=== PATIENT | male | born 1970 | race Caucasian/White ===

== ENCOUNTER 2016-09-21 14:48 | Inpatient (IN) | payer MEDICAID ==
[~2016-09-21] VITALS: Ht 172.7 cm; Wt 99.8 kg
[~2016-09-21 14:48] MED LIST: ALBMDI INH; ALBU2.5V7 INH; ALBUTEROL; ALPR2TAB2 PO; AMOX-426 PO; FAMO20TA8 PO; FLUT1DIS3 INH; HYDR-4100 PO; LEVO500T20 PO; METH4TAB3 PO; PHEL5 PO; PRED10TA PO; PRED20TA PO; SACC250C3 PO; SULF1TAB48 PO
[2016-09-21 14:55] VITALS: BP 144/94; PULSE 109; RESP 26; TEMP 97; O2SAT 94
--- NOTE | 2016-09-21 14:55 | NUR ---
Triaged at bedside. C/O SOB cough x 2 days. States that he has COPD flares once a month and he is not able to control with home medications at this time. Placed in room 6 . Placed on roofer gypsum, blood pressure machine and pulse oximeter. To gown for exam. Side rails up. Report given to Shama FOWLER.
--- NOTE | 2016-09-21 15:00 | NUR ---
ER Dr. Zafar at bedside examining patient.
--- NOTE | 2016-09-21 15:00 | NUR ---
Pt brought by self, A&Ox4, pt c/o cough and SOB for one month accompanied by intermittent chest pain, skin pink and warm, cap refill <3, VSS, ambulatory, no chets retractions noted at this time
[2016-09-21] MEDS ORDERED: methylPREDNISolone SOD SUCC/PF 62.5 MG/ML VIAL IVP ONE (15:15)
[2016-09-21] MEDS ORDERED: cefTRIAXone 1 GM IVPB PREMIX 50 ML IV ONE (15:15)
[2016-09-21] MEDS ORDERED: IPRATROPIUM BROM 0.5 MG/2.5 ML VIAL.NEB (ATROVENT) IH ONE (15:15)
[2016-09-21] MEDS ORDERED: AZITHROMYCIN 500 MG in NS 250 ML IV ONE (15:15)
[2016-09-21] MEDS ORDERED: ALBUTEROL SULFATE 0.083% 2.5 MG/3 ML VIAL.NEB IH ONE (15:15)
[2016-09-21] MEDS ORDERED: ASPIRIN 81 MG TAB.CHEW PO ONE (15:15)
[2016-09-21 15:25] LABS: BASOPHILS # (AUTO) 0.1 K/uL (0.0-0.2); BASOPHILS % (AUTO) 1.3 % (0.0-2.0); EOSINOPHILS # (AUTO) 0.3 K/uL (0.0-0.4); EOSINOPHILS % (AUTO) 3.7 % (0.0-4.0); HEMATOCRIT 49.6 % (36-54); LYMPHOCYTES % (AUTO) 27.3 % (20.5-51.5); MEAN CORPUSCULAR HEMOGLOBIN 28 pg (27-31); MEAN CORPUSCULAR HGB CONC 32 % (32-36); MEAN CORPUSCULAR VOLUME 85 fL (79.0-98.0); MONOCYTES # (AUTO) 0.8 K/uL (0.0-1.0); MONOCYTES % (AUTO) 10.7 % (1.7-9.3); NEUTROPHILS # (AUTO) 4.2 K/uL (1.8-7.7); PLATELET COUNT (AUTO) 174 K/uL (130-430); RED BLOOD CELL COUNT(AUTO) 5.83 MIL/uL (4.2-6.2); RED CELL DISTRIBUTION WIDTH 13.3 % (9.0-15.0); WHITE BLOOD COUNT (AUTO) 7.4 K/uL (4.8-10.8)
[2016-09-21 15:39] LABS: INR 0.9 (0.80-1.20); PROTHROMBIN TIME 10.1 SECS (9.5-12.5)
[2016-09-21 15:42] LABS: CALCIUM 9.3 mg/dL (8.4-11.0); CREATININE 0.89 mg/dL (0.55-1.30); POTASSIUM 3.6 mmol/L (3.5-5.1)
[2016-09-21 15:44] LABS: TOTAL BILIRUBIN 0.3 mg/dL (0.0-1.0); TOTAL PROTEIN, SERUM 7.5 g/dL (6.4-8.3)
[2016-09-21] MEDS ORDERED: AZITHROMYCIN 500 MG/VIAL (ZITHROMAX) IV ONE (16:20)
--- NOTE | 2016-09-21 16:26 | NUR ---
Telemetry strip printed, interpreted as SINUS RHYTHM at 87 bpm, and placed on the chart.
--- NOTE | 2016-09-21 16:48 | NUR ---
Medication reconciliation completed with information provided by patient . Any prior medication reconciliation on file was reviewed and corrected.
--- NOTE | 2016-09-21 16:49 | NUR ---
Pt off the unit for CT
--- NOTE | 2016-09-21 17:40 | NUR ---
Patient resting quietly. No acute distress noted. Vital signs within normal range. Patient will be admitted to care of Dr. Kwong. Admitted to tele unit. Will go to room 135. Belongings list completed. Summary report printed. Report given to RN at bedside. Transfer to tele via ACLS protocol. Licensed nurse present. IV present no signs or symptoms of infiltration.
--- NOTE | 2016-09-21 17:48 | NUR ---
Admission Note Received patient from ER with diagnosis of chest pain, copd exacerbation. Initial Plan of Care discussed-patient verbalized understanding. Oriented to room, call light, pain management and safety.
--- NOTE | 2016-09-21 17:54 | NUR ---
Patient will be admitted to care of Dr Kwong. Admitted to Tele unit. Will go to room 135 . Belongings list completed. Summary report printed. Report given to Marjorie Rosas .
[2016-09-21 17:58] VITALS: BP 118/72; PULSE 98; RESP 17; TEMP 97.2; O2SAT 93
[2016-09-21] MEDS ORDERED: HYDROcodone/ACETAMIN 10-325 MG TAB PO PRN (19:00)
[2016-09-21] MEDS ORDERED: NITROGLYCERIN 0.4 MG TAB.SUBL SL PRN (19:00)
[2016-09-21] MEDS ORDERED: ACETAMINOPHEN 325 MG TABLET PO PRN (19:00)
[2016-09-21 19:40] VITALS: BP 116/76; PULSE 102; RESP 20; TEMP 98.9; O2SAT 93
--- NOTE | 2016-09-21 20:00 | NUR ---
NOTES; PT IS SITTING UP IN BED, A/A/O X4, NO ACUTE DISTRESS OR SOB NOTED. IV SALINE LOCK TO THE RT AC PATENT. NO SIGNS OF INFECTION NOTED ON IV SITE. PT DENIES ANY PAIN AT THIS TIME. EDUCATED PT ON USE OF CALL LIGHT TO CALL FOR ANY NEED TO ASSIST. PT VERBALIZED UNDERSTANDING. BED LOCKED AND IN LOW POSITION, SIDE RAILS UP X2 PER PT REQUEST. CALL LIGHT AND BEDSIDE TABLE WITHIN REACH. WILL CONTINUE TO MONITOR.
[2016-09-21] MEDS: FAMOTIDINE 20 MG TABLET PO SCH (20:41)
--- NOTE | 2016-09-21 20:43 | NUR ---
NOTES; SCHEDULED PO MEDICATION ADMINISTERED. PT TOLERATED MEDS WELL.
[2016-09-21 21:00] VITALS: BP 116/76; PULSE 102
[2016-09-21] MEDS: methylPREDNISolone SOD SUCC 40 MG/ML VIAL IVP SCH (22:03)
--- NOTE | 2016-09-21 22:08 | NUR ---
PAGED PAGED LITTLE FREEMAN AT [phone] SPOKE WITH MURTAZA.
--- NOTE | 2016-09-21 22:10 | NUR ---
NOTES; PT C/O INSOMNIA. DR. TAYLOR CALLED, SPOKE WITH MD AND INFORMED ABOUT PT C/O INSOMNIA. DR. TAYLOR STATED" OK I WILL ORDER FROM HOME".
[2016-09-21] MEDS: ZOLPIDEM TARTRATE 5 MG TABLET PO PRN (22:34)
--- NOTE | 2016-09-21 22:36 | NUR ---
NOTES; AMBIEN 10MG PO ADMINISTERED FOR INSOMNIA.
--- NOTE | 2016-09-21 23:00 | NUR ---
NOTES; PT CALLED FOR SANDWICH, PROVIDED PER PT REQUEST. PT ATE 100%. WILL CONTINUE TO MONITOR.
[2016-09-22] MEDS: IPRATROPIUM/ALBUTEROL SULFATE 3 ML AMPUL.NEB INH SCH ×4 (01:00→23:36)
--- NOTE | 2016-09-22 01:00 | NUR ---
NOTES; PTT APPEARED TO BE SLEEPING, EYES CLOSED. RESPIRATION EVEN AND UNLABORED. SAFETY MEASURES MAINTAINED.
[2016-09-22 01:17] VITALS: BP 106/72; PULSE 112; RESP 17; TEMP 97.7; O2SAT 90
--- NOTE | 2016-09-22 03:00 | NUR ---
NOTES; PTT APPEARED TO BE SLEEPING, EYES CLOSED. RESPIRATION EVEN AND UNLABORED. SAFETY MEASURES MAINTAINED.
[2016-09-22 04:00] VITALS: BP 110/74; PULSE 110; RESP 17; TEMP 97.9; O2SAT 94
--- NOTE | 2016-09-22 05:09 | NUR ---
NOTES; PT APPEARED TO BE SLEEPING, EYES CLOSED. RESPIRATION EVEN AND UNLABORED. SAFETY MEASURES MAINTAINED.
--- NOTE | 2016-09-22 05:21 | NUR ---
CONSULTATION PAGED REASON FOR CONSULTATION:CHEST PAIN R/O IN, COPD EXACERBATION WAS CONSULT CALLED?Y PERSON WHO WAS NOTIFIED:YASMIN CONSULTING PHYSICIAN:ORLANDO PEACOCK PERLITE GRINDER SPECIALTY:CARDIO PERLITE GRINDER PHONE NUMBER:[phone]
--- NOTE | 2016-09-22 06:44 | NUR ---
NOTES; NO SIGNIFICANT CHANGES THROUGH THE NIGHT. RESTING QUIETLY, EASILY AROUSED. DENIES ANY PAIN AT THIS TIME. ALL NEEDS ATTENDED. SAFETY MEASURES MAINTAINED.
[2016-09-22 06:58] LABS: LYMPHOCYTES # (AUTO) 0.7 K/uL (1.0-5.5)
[2016-09-22 07:22] LABS: BASOPHILS % (AUTO) 0.3 % (0.0-2.0); EOSINOPHILS % (AUTO) 0.1 % (0.0-4.0); HEMATOCRIT 44.5 % (36-54); LYMPHOCYTES % (AUTO) 4.9 % (20.5-51.5); MEAN CORPUSCULAR HEMOGLOBIN 28 pg (27-31); MEAN CORPUSCULAR HGB CONC 34 % (32-36); MEAN CORPUSCULAR VOLUME 84 fL (79.0-98.0); MONOCYTES # (AUTO) 0.2 K/uL (0.0-1.0); MONOCYTES % (AUTO) 1.3 % (1.7-9.3); NEUTROPHILS # (AUTO) 14.3 K/uL (1.8-7.7); NEUTROPHILS % (AUTO) 93.4 % (40.0-70.0); PLATELET COUNT (AUTO) 154 K/uL (130-430); RED BLOOD CELL COUNT(AUTO) 5.32 MIL/uL (4.2-6.2); WHITE BLOOD COUNT (AUTO) 15.2 K/uL (4.8-10.8)
[2016-09-22 07:54] LABS: POTASSIUM 4.2 mmol/L (3.5-5.1); SODIUM SERUM 141 mmol/L (136-145)
[2016-09-22 07:55] LABS: ANION GAP 7 (5-15); CALCIUM 9.2 mg/dL (8.4-11.0); CHLORIDE 106 mmol/L (98-107); CHOLESTEROL 146 mg/dL (<200); CREATININE 0.96 mg/dL (0.55-1.30); GFR AFRICAN AMERICAN 108 mL/min (>90); GLUCOSE 151 mg/dL (70-99); HDL CHOLESTEROL 57 mg/dL (>45); TRIGLYCERIDES 44 mg/dL (30-150); UREA NITROGEN, BLOOD 10 mg/dL (8-21)
[2016-09-22 07:56] LABS: LDL CHOLESTEROL 87 mg/dL (<100); THYROID STIMULATING HORMONE 0.33 uIu/mL (0.34-4.82)
[2016-09-22 08:00] VITALS: BP 124/82; PULSE 98; RESP 20; TEMP 97.7; O2SAT 96
--- NOTE | 2016-09-22 08:00 | NUR ---
AM NOTES: RECEIVED PT AT 0730, ON BED AWAKE, ALERT, ORIENTED, AMBULATORY, NO RESP DISTRESS NOTED, DENIES CHEST PAIN, ON NSR. TO CONTINUE TO MONITOR CLOSELY.
[2016-09-22] MEDS: FAMOTIDINE 20 MG TABLET PO SCH ×2 (08:49→21:00)
[2016-09-22] MEDS: ASPIRIN 81 MG TAB.CHEW PO SCH (08:49)
[2016-09-22] MEDS: methylPREDNISolone SOD SUCC 40 MG/ML VIAL IVP SCH ×2 (08:49→20:20)
--- NOTE | 2016-09-22 10:00 | NUR ---
NURSE: AMBULATING ON THE HALLWAY, NO RESP DISTRESS NOTED, HOT METAL MIXER OPERATOR/RESIN REMOVER CAME TO SEE THE PT.
[2016-09-22 12:34] VITALS: BP 135/85; PULSE 87; RESP 17; TEMP 98; O2SAT 95
--- NOTE | 2016-09-22 15:23 | NUR ---
DISCHARGE PLANNING Spoke with Mack at [facility] who stated does not supply rechargeable nebulizer. LARRY Flores made aware.
[2016-09-22 15:44] LABS: FREE T4 (FREE THYROXINE) 0.9 ng/dl (0.8-1.5)
[2016-09-22 16:59] VITALS: BP 138/82; PULSE 79; RESP 18; TEMP 98.6; O2SAT 95
[2016-09-22 19:30] VITALS: BP 132/79; PULSE 80; RESP 18; TEMP 97.9; O2SAT 96
--- NOTE | 2016-09-22 19:30 | NUR ---
NOTES; PT IS SITTING UP IN BED, WATCHING TV. A/A/O X4, NO ACUTE DISTRESS OR SOB NOTED. IV SALINE LOCK TO THE RT AC PATENT. NO SIGNS OF INFECTION NOTED ON IV SITE. PT DENIES ANY SOB, DISCOMFORT OR PAIN AT THIS TIME. PRODUCTIVE COUGH WITH CLEAR PHLEGM NOTED. EDUCATED PT ON USE OF CALL LIGHT TO CALL FOR ANY NEED TO ASSIST. PT VERBALIZED UNDERSTANDING. BED LOCKED AND IN LOW POSITION, SIDE RAILS UP X2 PER PT REQUEST. CALL LIGHT AND BEDSIDE TABLE WITHIN REACH. WILL CONTINUE TO MONITOR.
[2016-09-22] MEDS ORDERED: cefTRIAXone 1 GM in D5W 50 ML IV SCH (21:00)
[2016-09-22] MEDS: ZOLPIDEM TARTRATE 5 MG TABLET PO PRN (21:04)
--- NOTE | 2016-09-22 21:05 | NUR ---
NOTES; AMBIEN 10MG PO FOR INSOMNIA , AND SCHEDULED PO MEDICATION ADMINISTERED. PT TOLERATED MEDS WELL. WILL CONTINUE TO MONITOR.
--- NOTE | 2016-09-22 23:30 | NUR ---
NOTES; APPEARED TO BE SLEEPING, EYES CLOSED, RESPIRATION EVEN AND UNLABORED. EASILY AROUSED. NO APPARENT DISTRESS NOTED. SAFETY MEASURES IN PROGRESS.
[2016-09-23 00:33] VITALS: BP 123/71; PULSE 76; RESP 18; TEMP 98.4; O2SAT 95
--- NOTE | 2016-09-23 02:00 | NUR ---
NOTES; PT APPEARED TO BE SLEEPING, EYES CLOSED, RESPIRATION EVEN AND UNLABORED. EASILY AROUSED. NO APPARENT DISTRESS NOTED. SAFETY MEASURES IN PROGRESS. WILL CONTINUE TO MONITOR.
--- NOTE | 2016-09-23 04:30 | NUR ---
NOTES; PT APPEARED TO BE SLEEPING, EYES CLOSED, RESPIRATION EVEN AND UNLABORED. EASILY AROUSED. NO APPARENT DISTRESS NOTED. SAFETY MEASURES IN PROGRESS. WILL CONTINUE TO MONITOR.
[2016-09-23 05:34] VITALS: BP 128/74; PULSE 79; RESP 18; TEMP 98.9; O2SAT 94
[2016-09-23] MEDS: IPRATROPIUM/ALBUTEROL SULFATE 3 ML AMPUL.NEB INH SCH ×2 (06:25→07:49)
--- NOTE | 2016-09-23 06:50 | NUR ---
NOTES; RESTING QUIETLY, EASILY AROUSED. NO S/S OF DISTRESS NOTED. DENIES ANY SOB. VITAL SIGNS STABLE. ALL NEEDS MET THROUGHOUT SHIFT. SAFETY MEASURES MAINTAINED. CALL LIGHT WITHIN REACH. WILL ENDORSE CARE TO ONCOMING NURSE.
[2016-09-23 07:33] VITALS: BP 111/80; PULSE 71; RESP 18; TEMP 97.7; O2SAT 96
--- NOTE | 2016-09-23 07:36 | NUR ---
INITIAL NOTES RECEIVED PATIENT ON BED AWAKE WATCHING T.V.BREATHING EVEN AND UNLABORED WITH O2 AT 2L/M VIA NASAL CANNULA.IVF SALINE LOCK INTACT AND PATENT;NO SIGNS AND SYMPTOMS OF INFILTRATION.SAFETY AND FALL PRECAUTIONS IN PLACE.CALL LIGHT WITHIN REACH
[2016-09-23] MEDS: FAMOTIDINE 20 MG TABLET PO SCH (08:46)
[2016-09-23] MEDS: ASPIRIN 81 MG TAB.CHEW PO SCH (08:46)
[2016-09-23] MEDS: methylPREDNISolone SOD SUCC 40 MG/ML VIAL IVP SCH (08:46)
--- NOTE | 2016-09-23 10:00 | NUR ---
NOTES SEEN PATIENT AMBULATING IN THE HALLWAY;TOLERATED ACTIVITY WELL
--- NOTE | 2016-09-23 10:15 | NUR ---
NOTES DR. TAYLOR CAME AND EXAMINED THE PATIENT;WITH ORDER FOR DISCHARGE AND CARRIED OUT
[2016-09-23] MEDS ORDERED: DOXY100T2 PO (11:10)
[2016-09-23] MEDS ORDERED: PRED20TA PO (11:11)
[2016-09-23 11:49] VITALS: BP 112/76; PULSE 70; RESP 18; TEMP 97.1; O2SAT 94
[2016-09-23 12:05] VITALS: BP 119/76; PULSE 74; RESP 18; TEMP 98.5; O2SAT 98
--- NOTE | 2016-09-23 12:40 | NUR ---
D/C Patient Patient given medication reconciliation form and D/C instructions. Exit Care provided. Patient verbalized understanding. MD discussed with patient the results and treatment provided. Ambulatory with steady gait for discharge to home. Patient in stable condition, ID band removed. IV catheter removed, intact and dressing applied, no active bleeding. Rx of doxycycline and prednisolone given. Patient educated on pain management. All belongings sent with patient. Addendum: 09/23/16 at 1325 by Yessica Jimenes RN INFORMATION REGARDING COMMUNITY RESOURCES GIVEN TO PATIENT SAID HE WILL LOOK INTO IT BUT FOR NOW HE WILL JUST STAY IN HIS TRUCK
--- NOTE | 2016-09-26 15:15 | NUR ---
Discharge Follow Up Phone Call MANPOWER DEVELOPMENT SPECIALIST MANAGER phoned patient, . Patient stated he was not improving much. He has a follow up appointment with his PCP on 10/03/16. MANPOWER DEVELOPMENT SPECIALIST MANAGER encouraged him to call and request an earlier appointment if he was not improving in a couple days or if he got worse. Patient agreed. Patient stated he filled his prescriptions and is taking them as directed. No further calls requested.
== END 2016-09-23 12:40 | disposition home or self-care (01) | DRG 140 ==
LOC: SED 14:50 → STU 17:33
PROVIDERS: ADMIT Internal Medicine; ATTEND Internal Medicine
DX: J44.1 Chronic obstructive pulmonary disease with (acute) exacerbation (principal); I48.0 Paroxysmal atrial fibrillation; F32.9 Major depressive disorder, single episode, unspecified; E66.9 Obesity, unspecified; J45.909 Unspecified asthma, uncomplicated; G89.29 Other chronic pain; M54.9 Dorsalgia, unspecified; Z87.891 Personal history of nicotine dependence; Z59.0 Homelessness; Z85.118 Personal history of other malignant neoplasm of bronchus and lung; Z68.33 Body mass index [BMI] 33.0-33.9, adult; Z79.899 Other long term (current) drug therapy
CPT/HCPCS: 36415; 71010; 80048; 80053; 80061; 83605; 83880; 84439; 84443-TC; 84484; 85025; 85610-TC; 85730-TC; 87040-TC; 93005; 94640; 94760; 96365; 96367; 96375; 99285; J0456; J0696; J1030; J2930; J7050; J7060

== ENCOUNTER 2016-12-04 18:27 | Inpatient (IN) | payer MEDICAID ==
[~2016-12-04] VITALS: Ht 172.7 cm; Wt 103.4 kg
[~2016-12-04 18:27] MED LIST changes: +DOXY100T2 PO
[2016-12-04 18:30] VITALS: BP 132/79; PULSE 114; RESP 22; TEMP 97.2; O2SAT 96
[2016-12-04] MEDS ORDERED: ALBUTEROL SULFATE 0.083% 2.5 MG/3 ML VIAL.NEB IH ONE (18:45)
[2016-12-04] MEDS ORDERED: IPRATROPIUM BROM 0.5 MG/2.5 ML VIAL.NEB (ATROVENT) IH ONE ×2 (18:45→21:00)
[2016-12-04 19:00] LABS: BASOPHILS # (AUTO) 0.1 K/uL (0.0-0.2); BASOPHILS % (AUTO) 0.8 % (0.0-2.0); EOSINOPHILS # (AUTO) 0.3 K/uL (0.0-0.4); EOSINOPHILS % (AUTO) 3.8 % (0.0-4.0); HEMATOCRIT 47.4 % (36-54); HEMOGLOBIN 15.3 g/dL (14.0-18.0); LYMPHOCYTES # (AUTO) 2.2 K/uL (1.0-5.5); MEAN CORPUSCULAR HEMOGLOBIN 27 pg (27-31); MEAN CORPUSCULAR HGB CONC 32 % (32-36); MEAN CORPUSCULAR VOLUME 83 fL (79.0-98.0); NEUTROPHILS # (AUTO) 5.6 K/uL (1.8-7.7); NEUTROPHILS % (AUTO) 60.4 % (40.0-70.0); PLATELET COUNT (AUTO) 176 K/uL (130-430); RED BLOOD CELL COUNT(AUTO) 5.71 MIL/uL (4.2-6.2); RED CELL DISTRIBUTION WIDTH 12.6 % (9.0-15.0); WHITE BLOOD COUNT (AUTO) 9.2 K/uL (4.8-10.8)
--- NOTE | 2016-12-04 19:00 | NUR ---
Placed in room 5. Placed on secured entrance monitor and pulse oximeter. To gown for exam. Side rails up.
[2016-12-04 19:10] LABS: CALCIUM 8.6 mg/dL (8.4-11.0); CREATININE 1.15 mg/dL (0.55-1.30); POTASSIUM 3.5 mmol/L (3.5-5.1)
[2016-12-04 19:13] LABS: INR 0.9 (0.80-1.20); PROTHROMBIN TIME 10.1 SECS (9.5-12.5)
[2016-12-04 19:15] LABS: ALBUMIN 3.6 g/dL (3.4-4.8); TOTAL BILIRUBIN 0.3 mg/dL (0.0-1.0); TOTAL PROTEIN, SERUM 6.9 g/dL (6.4-8.3)
--- NOTE | 2016-12-04 19:20 | NUR ---
Patient alert and oriented x 4 came in the ER with a complaint SOB with cough x 4 days. Wheezing noted. Denies fever, n/v/d. O2 sat at 95%. No acute distress noted. Non-productive cough noted.
--- NOTE | 2016-12-04 20:50 | NUR ---
ER Dr. Szymanski at bedside examining patient.
[2016-12-04] MEDS ORDERED: LevALBUTEROL HCL 1.25 MG/0.5 ML *CONC.* VIAL.NEB (XOPENEX CONC.) INH ONE (21:00)
[2016-12-04] MEDS ORDERED: methylPREDNISolone SOD SUCC/PF 62.5 MG/ML VIAL IVP ONE (21:00)
--- NOTE | 2016-12-04 22:05 | NUR ---
RT at bedside performing breathing tx
[2016-12-04] MEDS ORDERED: CYCLOBENZAPRINE HCL 10 MG TABLET (FLEXERIL) PO ONE (22:30)
--- NOTE | 2016-12-04 23:40 | NUR ---
Admission Note Received patient from ER with diagnosis of COPD EXACERBATION. Initial Plan of Care discussed-patient verbalized understanding. Family at bedside. Oriented to room, call light, pain management and safety.
[2016-12-04] MEDS ORDERED: ALBMDI INH (23:41)
[2016-12-04] MEDS ORDERED: BUDE6HFA INH (23:41)
[2016-12-04] MEDS ORDERED: FLUT1DIS3 INH (23:41)
[2016-12-04] MEDS ORDERED: HYDR-4100 PO (23:41)
[2016-12-05] VITALS (7 sets, daily range): BP systolic 108–130; BP diastolic 66–81; PULSE 90–113; RESP 18–21; TEMP 96–97.9; O2SAT 92–98
[2016-12-05] MEDS ORDERED: IPRATROPIUM/ALBUTEROL SULFATE 3 ML AMPUL.NEB INH PRN
[2016-12-05] MEDS ORDERED: methylPREDNISolone SOD SUCC/PF 62.5 MG/ML VIAL IVP ONE
--- NOTE | 2016-12-05 | NUR ---
Patient admitted under the care of Dr. Medina . Admitted to telemetry unit. Will go to room 117A. Summary report printed. Report given at bedside MALCOLM Boone. Patient transferred to room without incident by 1 RN and 1 EMT. No acute distress or SOB noted upon transfer.
[2016-12-05] MEDS ORDERED: FAMOTIDINE 20 MG TABLET PO ONE (00:15)
[2016-12-05] MEDS ORDERED: MONTELUKAST 10 MG TABLET PO ONE (00:15)
[2016-12-05] MEDS ORDERED: MAGNESIUM SULFATE 1 GM/2 ML VIAL IVP ONE (00:15)
[2016-12-05] MEDS ORDERED: DOXYCYCLINE HYCLATE 100 MG CAPSULE PO ONE (00:15)
[2016-12-05] MEDS ORDERED: MAGNESIUM SULFATE 50 ML IV ONE ×2 (01:04→01:15)
[2016-12-05] MEDS ORDERED: cefTRIAXone 1 GM IVPB PREMIX 50 ML IV ONE (01:05)
--- NOTE | 2016-12-05 01:08 | NUR ---
PAGED PAGED MADAN ESQUIVEL AT [phone] SPOKE WITH JAIME.
--- NOTE | 2016-12-05 01:13 | NUR ---
SPOKE TO DR. VALLEJO- CLARIFY MEDICATION ORDER MAG0-RIDER 2GM.
--- NOTE | 2016-12-05 01:14 | NUR ---
INITIAL NOTES: PT IS AWAKE, ALERT, ORIENTED X 4. NO PAIN. SLIGHT SOB AT EXERTION. NO STABLE VITAL SIGN. IV LOCK LEFT AC GAUGE 20- PATENT AND INTACT. ASSESSMENT DONE. POC DISCUSSED TO PATENT.SAFETY TEACHING DONE. PT VERBALIZED UNDERSTANDING. JORGE LIGHT IN REACH. WILL MONITOR.
[2016-12-05] MEDS: cefTRIAXone 1 GM in D5W 50 ML IV SCH (01:23)
[2016-12-05] MEDS: IPRATROPIUM/ALBUTEROL SULFATE 3 ML AMPUL.NEB INH SCH ×4 (02:22→19:40)
--- NOTE | 2016-12-05 04:17 | NUR ---
ROUND NOTES: SLEEPING, NO SOB, NOT DISTRESS. CALL LIGHT IN REACH. WILL MONITOR.
--- NOTE | 2016-12-05 06:16 | NUR ---
ROUND NOTES: SLEEPING, NO SOB, NO DISTRESS. CALL LIGHT IN REACH. WILL MONITOR.
--- NOTE | 2016-12-05 07:00 | NUR ---
CLOSING: PT WAKES UP. NO PAIN. NO SOB, NOT DISTRESS. LOCK INTACT. SAFETY ON. WILL GIVE BEDSIDE REPORT TO AM RN.
--- NOTE | 2016-12-05 08:00 | NUR ---
AM Initial Notes Pt aaox4 with no complaints of pain at this time. Mild shortness of breath but no distress noted. O2 via nasal canula @ 2L in place with O2 sat 93%. waste/materials exchange specialist in place. Educated about fall and safety precautions. Bed alarm armed with 3 side rails up. Encouraged to call for assistance. Call light within reach. Bilateral scd in place.
[2016-12-05] MEDS: BENZOCAINE/MENTHOL 1 EACH LOZENGE MM PRN ×2 (09:11→17:45)
[2016-12-05] MEDS: FAMOTIDINE 20 MG TABLET PO SCH ×2 (09:11→20:44)
[2016-12-05] MEDS: DOXYCYCLINE HYCLATE 100 MG CAPSULE PO SCH ×2 (09:11→20:44)
--- NOTE | 2016-12-05 10:00 | NUR ---
Rounds Pt asleep. No signs of facial grimacing for pain or discomfort. No distress noted. O2 via nasal canula in place. Call light within reach. Will monitor.
--- NOTE | 2016-12-05 11:45 | NUR ---
Dr. Carol BHAKTA inside room assessing patient. Plan of care discussed.
[2016-12-05] MEDS: HYDROcodone/ACETAMIN 10-325 MG TAB PO PRN ×2 (12:27→17:44)
[2016-12-05] MEDS: PROMETHAZINE-DM 6.25 MG-15 MG/5 ML UDC PO PRN ×2 (12:27→17:45)
[2016-12-05] MEDS ORDERED: MULTIVITAMINS TAB 1 TABLET PO ONE (12:30)
[2016-12-05] MEDS ORDERED: CHOLECALCIFEROL (VITAMIN D3) 2,000 UNIT TABLET PO ONE (12:30)
--- NOTE | 2016-12-05 12:42 | NUR ---
Rounds Pt awake eating lunch. Complaints of back pain 6/10 and coughing. No sob or distress noted. O2 via nasal canula @ 2L in place. Medicated with [place] for back pain and Phenergan DM for cough. Educated about fall and safety precautions. Verbalized understanding. Encouraged to call for assistance. Call light within reach. Will monitor. D/C bus monitor per Dr. Medina.
--- NOTE | 2016-12-05 14:19 | NUR ---
Resting Pt asleep. No signs of facial grimacing for pain or discomfort. No distress noted.
--- NOTE | 2016-12-05 14:55 | NUR ---
1400 ,Medications administered. Patient denies any discomfort, gave patient some apple juice. pt is comfortable.
[2016-12-05] MEDS: methylPREDNISolone SOD SUCC/PF 62.5 MG/ML VIAL IVP SCH ×2 (14:57→20:53)
--- NOTE | 2016-12-05 16:30 | NUR ---
Rounds Pt sound asleep. No signs of facial grimacing for pain or discomfort. No distress noted. Will monitor.
[2016-12-05] MEDS: MONTELUKAST 10 MG TABLET PO SCH (17:43)
--- NOTE | 2016-12-05 17:53 | NUR ---
Pain / Cough Pt complaints of back pain and coughing and wants to be medicated. Medicated patient with [place] for pain and Phenergan DM for cough and Cepacol. Reinforced education about fall and safety precautions. Encouraged to call for assistance. Call light within reach. Will monitor.
--- NOTE | 2016-12-05 18:53 | NUR ---
Closing notes Pt sound asleep. No signs of facial grimacing for pain or discomfort. No distress noted. Will endorse care to incoming nurse.
--- NOTE | 2016-12-05 19:45 | NUR ---
INITIAL ASSESSMENT: RECEIVE PT IN BED, AWAKE, ALERT, ORIENTED X 4. BREATHING EVEN AND NON LABORED, ON O2 2LI/NC, O2 SAT 96%, VITAL STABLE, SLIGHT SOB AT EXERTION. PT DENIES ANY PAIN OR DISCOMFORT. CHEST WHEEZING, ABDOMEN SOFT AND NON DISTENDED, ACTIVE BOWEL SOUND THROUGHOUT ABDOMEN, PT HAS IV LOCK LEFT AC GAUGE 20- PATENT AND INTACT. ASSESSMENT DONE AND COMPLETED. PT HAS EDEMA ON BLE +1. POC DISCUSSED TO PATENT. SAFETY TEACHING DONE. PT VERBALIZED UNDERSTANDING. JORGE LIGHT IN REACH. WILL CONTINUE TO MONITOR.
[2016-12-05] MEDS: MULTIVITAMINS TAB 1 TABLET PO SCH (20:44)
--- NOTE | 2016-12-05 21:30 | NUR ---
ADMINISTERED MEDICATION: PT AWAKE, ALERT, ORIENTED X 4. BREATHING EVEN AND NON LABORED, ON O2 2LI/NC, O2 SAT 97%, VITAL STABLE, SLIGHT SOB AT EXERTION. PT DENIES ANY PAIN OR DISCOMFORT. ADMINISTERED ALL ORDER MEDICATION. PT HAS IV LOCK LEFT AC GAUGE 20- PATENT AND INTACT. PT HAS EDEMA ON BLE +1. SAFETY TEACHING DONE. PT VERBALIZED UNDERSTANDING. JORGE LIGHT IN REACH. WILL CONTINUE TO MONITOR.
--- NOTE | 2016-12-05 23:37 | NUR ---
RN ROUND: PT SLEEPING, EASILY AWAKE, ALERT, ORIENTED X 4. BREATHING EVEN AND NON LABORED, ON O2 2LI/NC, O2 SAT 97%, VITAL STABLE, SLIGHT SOB AT EXERTION. PT DENIES ANY PAIN OR DISCOMFORT. PT HAS IV LOCK LEFT AC GAUGE 20- PATENT AND INTACT. PT HAS EDEMA ON BLE +1. SAFETY TEACHING DONE. PT VERBALIZED UNDERSTANDING. SCD ON. JORGE LIGHT IN REACH. WILL CONTINUE TO MONITOR.
[2016-12-06] VITALS: BP 132/77; PULSE 94; RESP 18; TEMP 98.1; O2SAT 97
[2016-12-06] MEDS: cefTRIAXone 1 GM in D5W 50 ML IV SCH (00:17)
[2016-12-06] MEDS: IPRATROPIUM/ALBUTEROL SULFATE 3 ML AMPUL.NEB INH SCH ×7 (00:37→23:22)
--- NOTE | 2016-12-06 03:20 | NUR ---
RN NOTE: PT SLEEPING, EASILY AWAKE. BREATHING EVEN AND NON LABORED, ON O2 2LI/NC, O2 SAT 95%, VITAL STABLE, SLIGHT SOB AT EXERTION. PT DENIES ANY PAIN OR DISCOMFORT. PT HAS IV LOCK LEFT AC GAUGE 20- PATENT AND INTACT. PT HAS EDEMA ON BLE +1. SAFETY MAINTAINED. SCD ON. JORGE LIGHT IN REACH. WILL CONTINUE TO MONITOR.
[2016-12-06 04:00] VITALS: BP 133/71; PULSE 96; RESP 18; TEMP 97.6; O2SAT 96
--- NOTE | 2016-12-06 05:20 | NUR ---
RN ROUND: PT SLEEPING, EASILY AWAKE. BREATHING EVEN AND NON LABORED, ON O2 2LI/NC, O2 SAT 95%, VITAL STABLE, SLIGHT SOB AT EXERTION. PT DENIES ANY PAIN OR DISCOMFORT. PT HAS IV LOCK LEFT AC GAUGE 20- PATENT AND INTACT. PT HAS EDEMA ON BLE +1. SAFETY MAINTAINED. SCD ON. CALL LIGHT IN REACH. WILL CONTINUE TO MONITOR.
--- NOTE | 2016-12-06 06:00 | NUR ---
COUGH/PAIN MEDICATION:: PT AWAKE, ALERT, ORIENTED X 4. BREATHING EVEN AND NON LABORED, ON O2 2LI/NC, O2 SAT 97%, VITAL STABLE, SLIGHT SOB AT EXERTION. COUGHING ALOT, ADMINISTERED PHENARGAN AND NORCO FOR CHEST PAIN 01/20, WILL REASSESS, PT HAS IV LOCK LEFT AC GAUGE 20- PATENT AND INTACT. PT HAS EDEMA ON BLE +1. SAFETY TEACHING DONE. PT VERBALIZED UNDERSTANDING. SCD ON. JORGE LIGHT IN REACH. WILL CONTINUE TO MONITOR.
[2016-12-06] MEDS: methylPREDNISolone SOD SUCC/PF 62.5 MG/ML VIAL IVP SCH ×3 (06:05→21:04)
[2016-12-06] MEDS: HYDROcodone/ACETAMIN 10-325 MG TAB PO PRN ×3 (06:11→21:06)
[2016-12-06] MEDS: PROMETHAZINE-DM 6.25 MG-15 MG/5 ML UDC PO PRN ×2 (06:11→17:43)
--- NOTE | 2016-12-06 07:21 | NUR ---
CLOSING NOTE: PT SLEEPING, EASILY AWAKE. BREATHING EVEN AND NON LABORED, ON O2 2LI/NC, O2 SAT 95%, VITAL STABLE, SLIGHT SOB AT EXERTION. PT DENIES ANY PAIN OR DISCOMFORT. PT HAS IV LOCK LEFT AC GAUGE 20- PATENT AND INTACT. PT HAS EDEMA ON BLE +1. SAFETY MAINTAINED. SCD ON. ALL NEEDS ATTENDED, JORGE LIGHT IN REACH. WILL ENDORSE TO AM NURSE.
--- NOTE | 2016-12-06 07:25 | NUR ---
rn Notes: patient is aaox 4. afebrile. vss stable. has oxygen 2lnc. lungs bilaterally with diminished at the bases. abdomen soft and non distended. has iv access on the left ac #20. saline lock. bed in low position. call lights within reach. safety measures maintained. informed patient to call for assistance.
[2016-12-06 08:40] VITALS: BP 132/78; PULSE 97; RESP 18; TEMP 98.2; O2SAT 90
--- NOTE | 2016-12-06 09:00 | NUR ---
no coughing noted, stable. no pain
[2016-12-06] MEDS: MULTIVITAMINS TAB 1 TABLET PO SCH ×2 (09:39→21:04)
[2016-12-06] MEDS: DOXYCYCLINE HYCLATE 100 MG CAPSULE PO SCH ×2 (09:39→21:04)
[2016-12-06] MEDS: FAMOTIDINE 20 MG TABLET PO SCH ×2 (09:39→21:04)
[2016-12-06] MEDS: CHOLECALCIFEROL (VITAMIN D3) 2,000 UNIT TABLET PO SCH (09:39)
--- NOTE | 2016-12-06 09:41 | NUR ---
due medication given at this time. trying to sleep. verbalized tired last nite. lno coughing noted. made comfortable.
[2016-12-06 12:00] VITALS: BP 118/72; PULSE 72; RESP 18; TEMP 98; O2SAT 82
--- NOTE | 2016-12-06 12:00 | NUR ---
eating lunch tolerating well. watching tv. no sob noted.
[2016-12-06] MEDS ORDERED: guaiFENesin ER 600 MG TAB PO ONE (13:00)
--- NOTE | 2016-12-06 14:00 | NUR ---
asleep at this time. no sob noted. nor distress noted.
--- NOTE | 2016-12-06 16:12 | NUR ---
DUE MEDICATION GIVEN AT THIS TIME.
[2016-12-06] MEDS: MONTELUKAST 10 MG TABLET PO SCH (17:42)
--- NOTE | 2016-12-06 18:00 | NUR ---
singular po given at this time.
--- NOTE | 2016-12-06 19:00 | NUR ---
called respiratory therapist for breathing treatment. walking in the hallway.
--- NOTE | 2016-12-06 19:30 | NUR ---
sbar endorsed to incoming nurse Aislinn FOWLER
--- NOTE | 2016-12-06 19:45 | NUR ---
INITIAL ASSESSMENT: RECEIVE PT IN BED, AWAKE, ALERT, ORIENTED X 4. BREATHING EVEN AND NON LABORED, ON ROOM AIR, O2 SAT 95%, VITAL STABLE, SLIGHT SOB AT EXERTION. PT DENIES ANY PAIN OR DISCOMFORT. CHEST WHEEZING, ABDOMEN SOFT AND NON DISTENDED, ACTIVE BOWEL SOUND THROUGHOUT ABDOMEN, PT HAS IV LOCK LEFT AC GAUGE 20- PATENT AND INTACT. ASSESSMENT DONE AND COMPLETED. PT HAS EDEMA ON BLE +1. POC DISCUSSED TO PATENT. SAFETY TEACHING DONE. PT VERBALIZED UNDERSTANDING. JORGE LIGHT IN REACH. WILL CONTINUE TO MONITOR.
[2016-12-06 20:00] VITALS: BP 149/90; PULSE 74; RESP 18; TEMP 98; O2SAT 95
[2016-12-06] MEDS: guaiFENesin ER 600 MG TAB PO SCH (21:04)
--- NOTE | 2016-12-06 21:20 | NUR ---
ADMINISTERED MEDICATION: PT AWAKE, ALERT, ORIENTED X 4. BREATHING EVEN AND NON LABORED, ROOM AIR, O2 SAT 93%, VITAL STABLE, SLIGHT SOB AT EXERTION. PT C/O PAIN CHEST 5/10, ADMINISTERED ALL ORDER MEDICATION. NORCO FOR PAIN, WILL REASSESS. PT HAS IV LOCK LEFT AC GAUGE 20- PATENT AND INTACT. PT HAS EDEMA ON BLE +1. SAFETY TEACHING DONE. PT VERBALIZED UNDERSTANDING. JORGE LIGHT IN REACH. WILL CONTINUE TO MONITOR.
--- NOTE | 2016-12-06 23:23 | NUR ---
RN ROUND: PT SLEEPING, EASILY AWAKE. BREATHING EVEN AND NON LABORED, ON O2 2LI/NC, O2 SAT 92%, VITAL STABLE, SLIGHT SOB AT EXERTION. PT DENIES ANY PAIN OR DISCOMFORT. PT HAS IV LOCK LEFT AC GAUGE 20- PATENT AND INTACT. PT HAS EDEMA ON BLE +1. SAFETY MAINTAINED. SCD ON. CALL LIGHT IN REACH. WILL CONTINUE TO MONITOR.
[2016-12-07 00:06] VITALS: BP 135/82; PULSE 87; RESP 20; TEMP 98.8; O2SAT 94
[2016-12-07] MEDS: cefTRIAXone 1 GM in D5W 50 ML IV SCH (00:21)
[2016-12-07] MEDS: IPRATROPIUM/ALBUTEROL SULFATE 3 ML AMPUL.NEB INH SCH ×5 (03:00→23:00)
--- NOTE | 2016-12-07 03:45 | NUR ---
NOTE: PT SLEEPING, EASILY AWAKE. BREATHING EVEN AND NON LABORED, ON O2 2LI/NC, O2 SAT 96%, VITAL STABLE, SLIGHT SOB AT EXERTION. PT DENIES ANY PAIN OR DISCOMFORT. PT HAS IV LOCK LEFT AC GAUGE 20- PATENT AND INTACT. PT HAS EDEMA ON BLE +1. SAFETY MAINTAINED. SCD ON. CALL LIGHT IN REACH. WILL CONTINUE TO MONITOR.
[2016-12-07 04:09] VITALS: BP 132/90; PULSE 76; RESP 18; TEMP 98.8; O2SAT 97
[2016-12-07] MEDS: methylPREDNISolone SOD SUCC/PF 62.5 MG/ML VIAL IVP SCH ×3 (05:57→21:04)
[2016-12-07] MEDS: PROMETHAZINE-DM 6.25 MG-15 MG/5 ML UDC PO PRN (05:57)
[2016-12-07] MEDS: HYDROcodone/ACETAMIN 10-325 MG TAB PO PRN ×3 (06:03→21:04)
[2016-12-07 06:27] LABS: CALCIUM 8.8 mg/dL (8.4-11.0); CREATININE 0.98 mg/dL (0.55-1.30); POTASSIUM 3.9 mmol/L (3.5-5.1)
[2016-12-07 06:32] LABS: BASOPHILS # (AUTO) 0.1 K/uL (0.0-0.2); BASOPHILS % (AUTO) 0.4 % (0.0-2.0); HEMATOCRIT 46.2 % (36-54); HEMOGLOBIN 14.7 g/dL (14.0-18.0); LYMPHOCYTES # (AUTO) 0.9 K/uL (1.0-5.5); MEAN CORPUSCULAR HEMOGLOBIN 27 pg (27-31); MEAN CORPUSCULAR HGB CONC 32 % (32-36); MEAN CORPUSCULAR VOLUME 85 fL (79.0-98.0); MONOCYTES # (AUTO) 0.5 K/uL (0.0-1.0); MONOCYTES % (AUTO) 2.4 % (1.7-9.3); NEUTROPHILS # (AUTO) 21.1 K/uL (1.8-7.7); NEUTROPHILS % (AUTO) 93.2 % (40.0-70.0); PLATELET COUNT (AUTO) 193 K/uL (130-430); RED BLOOD CELL COUNT(AUTO) 5.45 MIL/uL (4.2-6.2); RED CELL DISTRIBUTION WIDTH 13.5 % (9.0-15.0); WHITE BLOOD COUNT (AUTO) 22.6 K/uL (4.8-10.8)
--- NOTE | 2016-12-07 06:46 | NUR ---
PAIN/MEDICATION: PT AWAKE, WATCHING TV. BREATHING EVEN AND NON LABORED, ON O2 2LI/NC, O2 SAT 93%, VITAL STABLE, SLIGHT SOB AT EXERTION. PT C/O LOWER BACK PAIN, ADMINISTERED NORCO 1() TAB GIVEN, WILL REASSESS PAIN LEVEL. PT HAS IV LOCK LEFT AC GAUGE 20- PATENT AND INTACT. PT HAS EDEMA ON BLE +1. SAFETY MAINTAINED. SCD ON. CALL LIGHT IN REACH. WILL CONTINUE TO MONITOR. Addendum: 12/07/16 at 0649 by Maxwell Carlson RN TIME CORRECTION: 0500 AM.
--- NOTE | 2016-12-07 07:30 | NUR ---
rn notes: patient is aaox 4. afebrile. vss stable. lungs bilaterally with rhonchi. no sob noted. has 2 lnc of oxygen noted. o2 sat is 96%.. abdomen soft and non distended. bed in low position. saline lock lt ac #20. dry/intact. call lights within reach. safety measures maintained. informed patient to call for assistance. no sob nor distress noted.
--- NOTE | 2016-12-07 07:36 | NUR ---
CARE ENDORSE TO ALVAREZ RN, PT STABLE, NO DISTRESS. ALL NEEDS ATTENDED THROUGHOUT SHIFT.
[2016-12-07 07:57] VITALS: BP 132/80; PULSE 84; RESP 16; TEMP 97.4; O2SAT 97
--- NOTE | 2016-12-07 09:00 | NUR ---
family at the bedside. no sob nor distress noted.
--- NOTE | 2016-12-07 10:00 | NUR ---
due medication given as ordered. assists on adls.
[2016-12-07] MEDS: DOXYCYCLINE HYCLATE 100 MG CAPSULE PO SCH ×2 (10:05→20:50)
[2016-12-07] MEDS: guaiFENesin ER 600 MG TAB PO SCH ×2 (10:05→20:50)
[2016-12-07] MEDS: FAMOTIDINE 20 MG TABLET PO SCH ×2 (10:05→21:04)
[2016-12-07] MEDS: CHOLECALCIFEROL (VITAMIN D3) 2,000 UNIT TABLET PO SCH (10:05)
[2016-12-07] MEDS: MULTIVITAMINS TAB 1 TABLET PO SCH ×2 (10:05→20:50)
--- NOTE | 2016-12-07 10:11 | NUR ---
norco po 10/325mg po given. family at the bedside. Dr Medina came and evaluate the patient.
[2016-12-07 12:34] VITALS: BP 140/92; PULSE 100; RESP 20; TEMP 98.9; O2SAT 95
--- NOTE | 2016-12-07 14:00 | NUR ---
asleep at this time.
--- NOTE | 2016-12-07 16:00 | NUR ---
watching tv. no pain nor sob noted
[2016-12-07 16:52] VITALS: BP 134/90; PULSE 100; RESP 18; TEMP 98; O2SAT 94
[2016-12-07] MEDS: MONTELUKAST 10 MG TABLET PO SCH (17:46)
--- NOTE | 2016-12-07 17:48 | NUR ---
singulair po tab given. made comfortable.
--- NOTE | 2016-12-07 18:25 | NUR ---
patient will walk in the lobby with the developmental electronics assembler. stable. no sob noted
--- NOTE | 2016-12-07 19:30 | NUR ---
sbar report given to incoming nurse Immanuel FOWLER
--- NOTE | 2016-12-07 20:25 | NUR ---
Initial note A/O x 3, no SOB, no chest pain, c/o lower back pain 01/20. Skin warm to touch, IV at L AC, patent. Cough with dark yellow sputum noted. Wheezing at L upper chest noted. Actib Addendum: 12/07/16 at 2048 by Immanuel Pappas RN Active bowel sounds. No edema noted. Patient took O2/NC away and stated will put it back. Current O2 sat 92% on RA. Patient took SCD off and stated will put it back later too. Call light within reach, bed at lowest position, will continue to monitor patient.
[2016-12-07 20:43] VITALS: BP 129/80; PULSE 89; RESP 18; TEMP 98.7; O2SAT 92
--- NOTE | 2016-12-07 22:00 | NUR ---
Rounds A/O x 3, no SOB, no chest pain, stated pain decreased after [place] PO given. Cough without sputum at this time. 2L O2 va NC. SCD in place. Call light within reach, bed at lowest position, will continue to monitor patient.
[2016-12-08] VITALS (7 sets, daily range): BP systolic 128–143; BP diastolic 81–99; PULSE 71–99; RESP 16–20; TEMP 97.6–99.1; O2SAT 95–98
[2016-12-08] MEDS: cefTRIAXone 1 GM in D5W 50 ML IV SCH (00:17)
--- NOTE | 2016-12-08 00:22 | NUR ---
Rounds A/O x 3, no SOB, no chest pain, denied pain. Cough without sputum at this time. 2L O2 va NC. Skin warm to touch, IV at L AC, patent, Rocephin IV infusing. Patient removed SCD and stated it was not comfortable. Educated patient the importance of SCD. Patient went to bathroom x 1 for urination. Call light within reach, bed at lowest position, will continue to monitor patient.
--- NOTE | 2016-12-08 02:15 | NUR ---
Rounds Sleeping in bed, no SOB, no chest pain, no grimacing. 2L O2 va NC. Patient refused SCD and stated it was not comfortable earlier. Call light within reach, bed at lowest position, will continue to monitor patient.
[2016-12-08] MEDS: IPRATROPIUM/ALBUTEROL SULFATE 3 ML AMPUL.NEB INH SCH ×4 (03:00→17:33)
--- NOTE | 2016-12-08 04:07 | NUR ---
Rounds Sleeping in bed, arousable, no SOB, no chest pain, denied pain. NC was off from nose. O2 sat 93% RA. 2L O2 va NC applied for 1 minute, 97% on 2L. Patient still refused SCD. Call light within reach, bed at lowest position, will continue to monitor patient.
[2016-12-08] MEDS: methylPREDNISolone SOD SUCC/PF 62.5 MG/ML VIAL IVP SCH ×2 (05:40→14:03)
[2016-12-08] MEDS: HYDROcodone/ACETAMIN 10-325 MG TAB PO PRN ×3 (05:45→17:14)
--- NOTE | 2016-12-08 06:32 | NUR ---
Closing note Sleeping in bed, no SOB, no chest pain, no grimacing after [place] PO given. Continued 2 L O2 via NC. Patient still refused SCD. Call light within reach, bed at lowest position, will give report to incoming nurse.
--- NOTE | 2016-12-08 07:30 | NUR ---
rn notes: patient is aaox 4. afebrile. vss stable. lungs bilaterally with crackles noted. still on 2 lnc. of oxygen. o2 sat is 94%. abdomen soft and non distended. no skin breakdown noted. bed in low position. has iv access on the left ac #20. saline lock dry/intact. call lights within reach. maintained safety measures. informed patient to call for assistance. no pain nor distress noted.
[2016-12-08] MEDS: DOXYCYCLINE HYCLATE 100 MG CAPSULE PO SCH (09:20)
[2016-12-08] MEDS: MULTIVITAMINS TAB 1 TABLET PO SCH (09:20)
[2016-12-08] MEDS: FAMOTIDINE 20 MG TABLET PO SCH (09:20)
[2016-12-08] MEDS: CHOLECALCIFEROL (VITAMIN D3) 2,000 UNIT TABLET PO SCH (09:20)
[2016-12-08] MEDS: guaiFENesin ER 600 MG TAB PO SCH (09:20)
--- NOTE | 2016-12-08 09:27 | NUR ---
due medication given at this time. assists on adls. made comfortable.
--- NOTE | 2016-12-08 10:30 | NUR ---
patient walking down the hallway many times. no sob nor distress noted.
--- NOTE | 2016-12-08 11:58 | NUR ---
POLE PEELER NOTE: Pt referred by Quality Intern due to pt being homeless. Pt is known to Quality Intern from previous admissions. According to pt's chart, pt is a 46 year old male admitted with the diagnosis of Chronic Obstructive Pulmonary Disease Exacerbation; pt has a history of COPD, recurrent bronchitis, paroxysmal atrial fibrillation, and chronic pain syndrome. SHOE DRESSER met with pt at bedside. Pt was sitting up in bed and appears to be alert and oriented. Pt presents with calm and pleasant demeanor. Pt states that he is living in his truck. Pt plans to return to his previous living situation upon discharge. Pt states that he generally stays in the [facility] and receives some assistance (food, etc.) from [facility]. Pt receives $220 per month in General Relief. Pt had a disability hearing on November 28 and states that he should know the result of the hearing in 30-90 days. Pt reports that he is regularly attending his doctor appointments and pt has enough money to purchase his prescriptions. SHOE DRESSER provided pt with homeless assistance, local [facility] clinics, local food [place], and out patient mental health resources, but pt states that he does not qualify for most programs because he has a car. Pt states that he is able to shower occasionally at friend's or family's homes. Pt inquired about obtaining a front wheel walker. SHOE DRESSER informed pt that SHOE DRESSER would follow up. SHOE DRESSER spoke with pt's Superintendent Drivers, Mark, and she states that there is no order for a FWW for pt at this time. SHOE DRESSER provided update to pt and encouraged pt to talk with his doctor regarding request for FWW. Pt expressed understanding. Pt did not express any other needs or concerns at this time. SHOE DRESSER encouraged pt to contact Quality Intern if any additional needs arise. SHOE DRESSER placed Homeless Waiver in pt's chart to be completed upon discharge. SHOE DRESSER spoke with pt's Nurse, Anamika, and provided update regarding conversation with pt and resources provided. Quality Intern will continue to remain available and follow up as needed.
--- NOTE | 2016-12-08 12:00 | NUR ---
walk to the hallway. ambulating well.
--- NOTE | 2016-12-08 12:38 | NUR ---
patient eating lunch tolerating well. sitting in the bed and watching tv. has oxygen on 2 lnc. no sob nor distress noted.
--- NOTE | 2016-12-08 14:00 | NUR ---
dr brannon came n evaluate the patient.
--- NOTE | 2016-12-08 14:05 | NUR ---
solumedrol 40 mg iv given as ordered. sitting on the chair. no sob noted
--- NOTE | 2016-12-08 14:34 | NUR ---
calling Eulalia Buckle Wire Inserter for the front wheel walker/seat at home.
--- NOTE | 2016-12-08 14:37 | NUR ---
DISCHARGE PLANNING DC order for FWW with seat. Called LARRY BRAVO TEL # [phone] at [facility] left voice message requesting return call back. Faxed DME order for FWW with seat to FAX # [phone]. Meanwhile: Faxed DME order to [phone]. Called and spoke with Mack who will expedite order and attempt to have requested DME to be delivered to patient hospital room today. Mack will return call to DCP with ETA. DCP will follow up. Addendum: 12/08/16 at 1635 by Eulalia Spence DP Spoke with Mack at [employer] ferry driver scheduled to deliver FWW with seat to patient hospital room today between 6-8pm. MALCOLM Willson made aware.
--- NOTE | 2016-12-08 14:49 | NUR ---
still awaiting for the company who gonna bring the front wheel walker w/seat. perhaps today or tonite
[2016-12-08] MEDS ORDERED: DOXY-4 PO ×2 (16:30→17:21)
--- NOTE | 2016-12-08 16:30 | NUR ---
called Anamika Posey regarding front wheel walker. said will wait for it between 1800 to 1900pm
[2016-12-08] MEDS: MONTELUKAST 10 MG TABLET PO SCH (17:10)
[2016-12-08] MEDS ORDERED: VITD2000 PO (17:20)
[2016-12-08] MEDS ORDERED: PRED10TA PO ×3 (17:22→17:24)
--- NOTE | 2016-12-08 17:30 | NUR ---
singulair po given with water. made comfortable.
--- NOTE | 2016-12-08 17:33 | NUR ---
patient went to lobby to walk with the gf. stable. no distress
--- NOTE | 2016-12-08 17:59 | NUR ---
awaiting for the front wheel walker to be delivered in the hospital
--- NOTE | 2016-12-08 18:15 | NUR ---
awaiting for the front wheel walker. patient is stable.
--- NOTE | 2016-12-08 19:25 | NUR ---
sbar report given to incoming nurse Acevedo RN
--- NOTE | 2016-12-08 19:28 | NUR ---
D/C PT D/C PT ORDERED. NO SOB AND NO DISTRESS NOTED DURING D/C. V/S ARE WNL. ALL BELONGINGS WAS WITH PT INCLUDING NEWLY ORDERED WALKER WITH CHAIR. EXPLAINED TRANSITION PAPERS TO PT AND VERBALIZED UNDERSTANDING. PT WAS ACCOMPANIED BY .
--- NOTE | 2016-12-12 16:37 | NUR ---
Discharge Follow Up Phone Call CARE TRANSPORT NURSE phoned patient, . Patient stated he was doing fair. He is still having difficulty breathing. Patient stated his insurance called him yesterday and stated [facility] cancelled his home O2. CARE TRANSPORT NURSE discussed that chart review indicates that no O2 was ordered and that under the usual guidelines, patient may not have qualified for home O2 if it had been ordered. Patient believes that because of his multiple admissions, the insurance would provide O2. Patient has an appointment with his coat check attendant next week and will discuss and determine if the coat check attendant will order the O2. Patient would need tanks because he lives in his truck. CARE TRANSPORT NURSE discussed that patient would have to discuss with an O2 company safe storage, scrap picker or delivery. Patient is pursuing a disability claim that should provide him with income to obtain housing. Patient is using his FWW. [employer]l [employer] Architect will remain available at patient request.
== END 2016-12-08 19:26 | disposition home or self-care (01) | DRG 140 ==
LOC: SED 18:27 → STU 23:41 → SMU 12-05 15:26
PROVIDERS: ADMIT Internal Medicine; ATTEND Internal Medicine
DX: J44.0 Chronic obstructive pulmonary disease with (acute) lower respiratory infection (principal); J96.00 Acute respiratory failure, unspecified whether with hypoxia or hypercapnia; E55.9 Vitamin D deficiency, unspecified; J44.1 Chronic obstructive pulmonary disease with (acute) exacerbation; I48.0 Paroxysmal atrial fibrillation; G89.4 Chronic pain syndrome; E66.9 Obesity, unspecified; M54.9 Dorsalgia, unspecified; J20.9 Acute bronchitis, unspecified; D72.829 Elevated white blood cell count, unspecified; T38.0X5A Adverse effect of glucocorticoids and synthetic analogues, initial encounter; Y92.89 Other specified places as the place of occurrence of the external cause; Z87.891 Personal history of nicotine dependence; Z85.118 Personal history of other malignant neoplasm of bronchus and lung; Z79.899 Other long term (current) drug therapy; Z68.34 Body mass index [BMI] 34.0-34.9, adult
CPT/HCPCS: 36415; 71010; 71020-TC; 80048; 80053; 82306; 83880; 84484; 85025; 85610-TC; 85730-TC; 93005; 94640; 94760; 96374; 99285; J0696; J2930; J3475; J7040; J7060

== ENCOUNTER 2017-07-10 20:32 | Emergency (ER) | payer MEDICAID ==
[~2017-07-10] VITALS: Ht 172.7 cm; Wt 103.4 kg
[~2017-07-10 20:32] MED LIST changes: -ALBU2.5V7 INH; -ALBUTEROL; -ALPR2TAB2 PO; -AMOX-426 PO; +BUDE6HFA INH; +DOXY-4 PO; -LEVO500T20 PO; -METH4TAB3 PO; -PHEL5 PO; -SACC250C3 PO; -SULF1TAB48 PO; +VITD2000 PO
[2017-07-10 20:36] VITALS: BP_SYST 128
[2017-07-10] MEDS ORDERED: PREDNISONE 20 MG TABLET PO ONE (21:00)
[2017-07-10] MEDS ORDERED: IPRATROPIUM/ALBUTEROL SULFATE 3 ML AMPUL.NEB INH ONE (21:00)
[2017-07-10] MEDS ORDERED: IBUPROFEN 600 MG TABLET PO ONE (22:15)
[2017-07-10] MEDS ORDERED: LevALBUTEROL HCL 1.25 MG/0.5 ML *CONC.* VIAL.NEB (XOPENEX CONC.) INH ONE (22:30)
[2017-07-10 23:11] VITALS: BP_SYST 110
== END 2017-07-10 23:11 | disposition home or self-care (01) ==
LOC: SED 20:32
DX: J44.1 Chronic obstructive pulmonary disease with (acute) exacerbation (principal); F41.9 Anxiety disorder, unspecified; Z85.118 Personal history of other malignant neoplasm of bronchus and lung; Z79.899 Other long term (current) drug therapy
CPT/HCPCS: 71010; 93005; 94640; 99284; J7512

== ENCOUNTER 2017-07-17 10:49 | Emergency (ER) | payer MEDICAID ==
[~2017-07-17] VITALS: Ht 172.7 cm; Wt 104.3 kg
[2017-07-17 10:54] VITALS: BP_SYST 134
--- NOTE | 2017-07-17 10:59 | NUR ---
Patient to ER bed 8 to gown for evaluation. Side rails up. Report given to Indira FOWLER.
--- NOTE | 2017-07-17 11:00 | NUR ---
ER at bedside examining patient.
--- NOTE | 2017-07-17 11:04 | NUR ---
Pt ambulated into the ED c/o 03/22 L elbow pain x5 days. Pt states he noticed swelling and tenderness in his L elbow which started having yellow purulent discharge until yesterday which then changed to red/brownish discharge. No discharge noticed SARAH. VSS. Noted abscess on L elbow with erythema and swelling. No other injuries/complaintes noted per pt.
[2017-07-17] MEDS ORDERED: LIDOCAINE 1% 10 MG/ML, 20 ML MDV IJ ONE (11:15)
--- NOTE | 2017-07-17 11:30 | NUR ---
ER at performing I&D at bedside.
[2017-07-17 11:46] VITALS: BP_SYST 132
--- NOTE | 2017-07-17 11:47 | NUR ---
Patient given written and verbal discharge instructions and verbalizes understanding. ER MD LAURA discussed with patient the results and treatment provided. Patient in stable condition. ID arm band removed. DRESSING APPLIED TO L ELBOW Rx of NORCO AND BACTRIM given. Patient educated on pain management and to follow up with PMD. Pain Scale 2. DR LAURA AWARE. Opportunity for questions provided and answered.
== END 2017-07-17 11:47 | disposition home or self-care (01) ==
LOC: SED 10:49
DX: L02.818 Cutaneous abscess of other sites (principal); F41.9 Anxiety disorder, unspecified; J44.9 Chronic obstructive pulmonary disease, unspecified; Z85.118 Personal history of other malignant neoplasm of bronchus and lung; Z79.899 Other long term (current) drug therapy
CPT/HCPCS: 10060; 99283; J2001

== ENCOUNTER 2017-07-18 19:12 | Emergency (ER) | payer MEDICAID ==
[~2017-07-18] VITALS: Ht 172.7 cm; Wt 105.2 kg
[2017-07-18 19:15] VITALS: BP_SYST 132
[2017-07-18] MEDS ORDERED: LIDOCAINE/EPI 2% 1:100000 20 ML VIAL INJ ONE (19:30)
[2017-07-18 20:07] VITALS: BP_SYST 137
== END 2017-07-18 20:07 | disposition home or self-care (01) ==
LOC: SED 19:12
DX: M79.632 Pain in left forearm (principal); R03.0 Elevated blood-pressure reading, without diagnosis of hypertension; J44.9 Chronic obstructive pulmonary disease, unspecified; F41.9 Anxiety disorder, unspecified; Z85.118 Personal history of other malignant neoplasm of bronchus and lung; Z79.899 Other long term (current) drug therapy
CPT/HCPCS: 99283

== ENCOUNTER 2017-07-22 13:55 | Emergency (ER) | payer MEDICAID ==
[~2017-07-22] VITALS: Ht 172.7 cm; Wt 105.2 kg
[2017-07-22 14:06] VITALS: BP_SYST 137
--- NOTE | 2017-07-22 14:10 | NUR ---
Patient triaged and placed in waiting room. VSS and patient appears in no acute distress at this time. Accompanied by SELF, awaiting available bed, and MD notified of need for MSE.
--- NOTE | 2017-07-22 15:22 | NUR ---
ER NADINE Rubio at bedside examining patient.
--- NOTE | 2017-07-22 15:22 | NUR ---
Patient to ER bed 3 to gown for evaluation. Side rails up. Report given to Alphonse FOWLER.
--- NOTE | 2017-07-22 15:25 | NUR ---
Patient to ER for wound check to left elbow, last seen on 07/18/16 for same complaint. Patient able to ambulate to bed 3 with slow, steady gait in no acute distress. Patient reports feeling warm-temp in triage was 98.3. Patient with packing noted to left elbow, with dressing on. Patient was seen by Joanne SPRING INSPECTOR, and packing was removed by Joanne SPRING INSPECTOR. Will continue to observe and assess.
[2017-07-22] MEDS ORDERED: BACITRACIN 1 GM OINT TP ONE (15:30)
[2017-07-22] MEDS ORDERED: IBUPROFEN 800 MG TABLET PO ONE (15:30)
[2017-07-22 16:00] VITALS: BP_SYST 130
--- NOTE | 2017-07-22 16:00 | NUR ---
Patient given written and verbal discharge instructions and verbalizes understanding. ER MD discussed with patient the results and treatment provided. Patient in stable condition. ID arm band removed. Rx of Motrin given. Patient educated on pain management and to follow up with PMD. Pain Scale 8. Opportunity for questions provided and answered. Patient left ER ambulating with slow, steady gait in no acute distress. No adverse reaction noted to medication.
== END 2017-07-22 16:00 | disposition home or self-care (01) ==
LOC: SED 13:55
DX: Z48.01 Encounter for change or removal of surgical wound dressing (principal); J44.9 Chronic obstructive pulmonary disease, unspecified; F41.9 Anxiety disorder, unspecified; F17.210 Nicotine dependence, cigarettes, uncomplicated; Z71.6 Tobacco abuse counseling; Z85.118 Personal history of other malignant neoplasm of bronchus and lung; Z79.899 Other long term (current) drug therapy
CPT/HCPCS: 99283

== ENCOUNTER 2017-08-08 19:00 | Emergency (ER) | payer MEDICAID | END 2017-08-08 20:21 | disposition still patient (30) | LOC: SED 19:00 | DX: K08.9 Disorder of teeth and supporting structures, unspecified (principal); Z53.21 Procedure and treatment not carried out due to patient leaving prior to being seen by health care provider ==